=== PATIENT | female | born 1960 ===

== ENCOUNTER 2018-01-03 12:26 | Outpatient (CLI) | payer OTHER ==
[~2018-01-03] VITALS: Ht 167.6 cm; Wt 79.4 kg
== END 2018-01-03 12:45 | disposition home or self-care (01) ==
LOC: OFIC 805 12:26
DX: H60.8X2 Other otitis externa, left ear (principal); H90.72 Mixed conductive and sensorineural hearing loss, unilateral, left ear, with unrestricted hearing on the contralateral side

== ENCOUNTER 2018-01-17 09:17 | Outpatient (CLI) | payer OTHER ==
[~2018-01-17] VITALS: Ht 152.4 cm; Wt 79.4 kg
== END 2018-01-17 09:35 | disposition home or self-care (01) ==
LOC: OFIC 805 09:17
DX: H90.72 Mixed conductive and sensorineural hearing loss, unilateral, left ear, with unrestricted hearing on the contralateral side (principal)

== ENCOUNTER 2018-02-17 09:21 | Outpatient (CLI) | payer OTHER ==
[~2018-02-17] VITALS: Ht 152.4 cm; Wt 79.4 kg
== END 2018-02-17 09:40 | disposition home or self-care (01) ==
LOC: OFIC 805 09:21
DX: H60.8X2 Other otitis externa, left ear (principal); H61.22 Impacted cerumen, left ear

== ENCOUNTER 2018-03-14 10:12 | Outpatient (CLI) | payer OTHER ==
[~2018-03-14] VITALS: Ht 152.4 cm; Wt 79.4 kg
== END 2018-03-14 10:30 | disposition home or self-care (01) ==
LOC: OFIC 805 10:12
DX: H60.8X2 Other otitis externa, left ear (principal); H74.8X3 Other specified disorders of middle ear and mastoid, bilateral

== ENCOUNTER 2018-09-28 12:32 | Outpatient (CLI) | payer OTHER ==
[~2018-09-28] VITALS: Ht 152.4 cm; Wt 79.4 kg
== END 2018-09-28 12:45 | disposition home or self-care (01) ==
LOC: OFIC 805 12:32
DX: J32.9 Chronic sinusitis, unspecified (principal); H66.93 Otitis media, unspecified, bilateral; H74.8X3 Other specified disorders of middle ear and mastoid, bilateral

== ENCOUNTER 2018-10-12 10:17 | Outpatient (CLI) | payer OTHER ==
[~2018-10-12] VITALS: Ht 152.4 cm; Wt 79.4 kg
== END 2018-10-12 10:35 | disposition home or self-care (01) ==
LOC: OFIC 805 10:17
DX: H74.8X3 Other specified disorders of middle ear and mastoid, bilateral (principal); K13.70 Unspecified lesions of oral mucosa; H91.8X1 Other specified hearing loss, right ear; R09.81 Nasal congestion; H92.01 Otalgia, right ear

== ENCOUNTER 2018-11-23 09:41 | Outpatient (CLI) | payer OTHER ==
[~2018-11-23] VITALS: Ht 152.4 cm; Wt 79.4 kg
== END 2018-11-23 10:00 | disposition home or self-care (01) ==
LOC: OFIC 805 09:41
DX: H69.90 Unspecified Eustachian tube disorder, unspecified ear (principal)

== ENCOUNTER 2019-01-01 08:56 | Outpatient (CLI) | payer OTHER ==
[~2019-01-01] VITALS: Ht 152.4 cm; Wt 79.4 kg
== END 2019-01-01 09:15 | disposition home or self-care (01) ==
LOC: OFIC 805 08:56
DX: H69.90 Unspecified Eustachian tube disorder, unspecified ear (principal); H74.8X3 Other specified disorders of middle ear and mastoid, bilateral; H90.3 Sensorineural hearing loss, bilateral

== ENCOUNTER 2019-01-11 15:04 | Outpatient (CLI) | payer OTHER ==
[~2019-01-11] VITALS: Ht 152.4 cm; Wt 79.4 kg
== END 2019-01-11 15:20 | disposition home or self-care (01) ==
LOC: OFIC 805 15:04
DX: H74.8X3 Other specified disorders of middle ear and mastoid, bilateral (principal); H90.72 Mixed conductive and sensorineural hearing loss, unilateral, left ear, with unrestricted hearing on the contralateral side; H90.3 Sensorineural hearing loss, bilateral; H69.90 Unspecified Eustachian tube disorder, unspecified ear

== ENCOUNTER 2019-01-18 10:14 | Outpatient (CLI) | payer OTHER ==
[~2019-01-18] VITALS: Ht 152.4 cm; Wt 79.4 kg
== END 2019-01-18 10:30 | disposition home or self-care (01) ==
LOC: OFIC 805 10:14
DX: H69.90 Unspecified Eustachian tube disorder, unspecified ear (principal); H74.8X3 Other specified disorders of middle ear and mastoid, bilateral; H90.6 Mixed conductive and sensorineural hearing loss, bilateral

== ENCOUNTER 2019-01-25 09:39 | Outpatient (CLI) | payer OTHER ==
[~2019-01-25] VITALS: Ht 152.4 cm; Wt 79.4 kg
== END 2019-01-25 10:00 | disposition home or self-care (01) ==
LOC: OFIC 805 09:39
DX: H69.90 Unspecified Eustachian tube disorder, unspecified ear (principal); H90.3 Sensorineural hearing loss, bilateral; H90.6 Mixed conductive and sensorineural hearing loss, bilateral; H74.8X3 Other specified disorders of middle ear and mastoid, bilateral

== ENCOUNTER 2019-02-15 09:58 | Outpatient (CLI) | payer OTHER ==
[~2019-02-15] VITALS: Ht 152.4 cm; Wt 79.4 kg
== END 2019-02-15 10:15 | disposition home or self-care (01) ==
LOC: OFIC 805 09:58
DX: H90.3 Sensorineural hearing loss, bilateral (principal); H69.90 Unspecified Eustachian tube disorder, unspecified ear; E22.1 Hyperprolactinemia

== ENCOUNTER 2019-11-13 10:34 | Outpatient (CLI) | payer OTHER ==
[2019-11-13] MEDS ORDERED: CIPRODEX OTIC7.5 ML OT (12:13)
[2019-11-13] MEDS ORDERED: PERCOGESIC EXT1 EACH PO (12:15)
== END 2019-11-13 12:30 | disposition home or self-care (01) ==
LOC: OFIC 805 10:34
DX: H66.92 Otitis media, unspecified, left ear (principal); H93.12 Tinnitus, left ear

== ENCOUNTER → 2020-03-25 | Outpatient (CLI) | payer OTHER ==
[~2020-03-25] MED LIST: CIPRODEX OTIC7.5 ML OT; PERCOGESIC EXT1 EACH PO
== END | disposition home or self-care (01) ==
LOC: OFIC 805 08:45
PROVIDERS: ATTEND Otolaryngology
DX: H66.93 Otitis media, unspecified, bilateral (principal)

== ENCOUNTER → 2020-06-25 | Outpatient (CLI) | payer OTHER | END | disposition home or self-care (01) | LOC: OFIC 805 12:51 | PROVIDERS: ATTEND Otolaryngology | DX: H69.82 Other specified disorders of Eustachian tube, left ear (principal); R09.81 Nasal congestion ==

== ENCOUNTER 2020-09-23 11:46 | Outpatient (CLI) | payer OTHER | END 2020-09-23 16:49 | disposition home or self-care (01) | LOC: OFIC 805 11:46 | PROVIDERS: ATTEND Otolaryngology | DX: L30.8 Other specified dermatitis (principal) ==

== ENCOUNTER → 2020-12-19 | Outpatient (CLI) | payer OTHER | END | disposition home or self-care (01) | LOC: OFIC 805 08:25 | PROVIDERS: ATTEND Otolaryngology Otology & Neurotology | DX: H66.3X1 Other chronic suppurative otitis media, right ear (principal); H66.93 Otitis media, unspecified, bilateral; H90.3 Sensorineural hearing loss, bilateral; H61.21 Impacted cerumen, right ear ==

== ENCOUNTER 2020-12-24 11:05 | Outpatient (CLI) | payer OTHER | END 2020-12-24 12:34 | disposition home or self-care (01) | LOC: OFIC 805 11:05 | PROVIDERS: ATTEND Otolaryngology Otology & Neurotology | DX: H66.3X1 Other chronic suppurative otitis media, right ear (principal); H66.93 Otitis media, unspecified, bilateral; Z96.22 Myringotomy tube(s) status ==

== ENCOUNTER 2021-01-05 14:07 | Outpatient (CLI) | payer OTHER | END 2021-01-05 15:06 | disposition home or self-care (01) | LOC: OFIC 805 14:07 | PROVIDERS: ATTEND Otolaryngology Otology & Neurotology | DX: H66.3X1 Other chronic suppurative otitis media, right ear (principal); L30.8 Other specified dermatitis; H66.93 Otitis media, unspecified, bilateral; H90.3 Sensorineural hearing loss, bilateral ==